=== PATIENT | female | born 1980 | race American Indian/Alaskan Native ===

== ENCOUNTER 2017-03-29 19:08 | Inpatient (IN) | payer BC ==
--- NOTE | 2017-03-29 21:30 | ED PDOC ---
HPI: Back Time Seen by Provider: 03/29/17 20:08 Chief Complaint (Nursing): Back Pain Chief Complaint (Provider): Back Pain History Per: Patient History/Exam Limitations: no limitations Onset/Duration Of Symptoms: Days (3x) Current Symptoms Are (Timing): Still Present Severity: Moderate Previous Symptoms: None Associated Symptoms: None Exacerbating Factor(s): Movement Additional Complaint(s): 36 year old female with no pertinent medical history presents to the ED with complaints of atraumatic right sided lower back pain and swelling that started 3x days ago. She reports that the pain radiates down to her legs bilaterally, and it worsens with movement, but improves with the elevation of her legs. She reports taking tylenol with no relief. She denies having a history of back problems, abdominal pain, nausea, vomiting, hematuria, incontinence, and saddle paresthesias. PMD: Leland Oswald MD Past Medical History Vital Signs: Last Vital Signs Temp 98.4 F 03/29/17 19:16 Pulse 96 H 03/29/17 19:16 Resp 16 03/29/17 19:16 BP 126/95 H 03/29/17 19:16 Pulse Ox 100 03/29/17 19:16 - Family History Family History: States: No Known Family Hx - Home Medications Home Medications: Ambulatory Orders Medication Instructions Recorded No Known Home Med 03/29/17 - Allergies Allergies/Adverse Reactions: Allergies Allergy/AdvReac Type Severity Reaction Status Date / Time apple Allergy SWELLING Verified 03/29/17 22:55 walnut Allergy SWELLING Verified 03/29/17 22:55 Review of Systems ROS Statement: Except As Marked, All Systems Reviewed And Found Negative Gastrointestinal: Negative for: Nausea, Vomiting, Abdominal Pain Genitourinary Female: Negative for: Incontinence, Hematuria Musculoskeletal: Positive for: Back Pain (right sided lower back pain, radiates down to patient's legs bilaterally). Negative for: Other (saddle paresthesias) Physical Exam - Reviewed Nursing Documentation Reviewed: Yes Vital Signs Reviewed: Yes - Physical Exam Appears: Positive for: Well, Non-toxic, In Acute Distress (mild painful distress ) Head Exam: Positive for: ATRAUMATIC, NORMOCEPHALIC Skin: Positive for: Normal Color, Warm. Negative for: Rash Eye Exam: Positive for: EOMI, Normal appearance, PERRL ENT: Positive for: Normal ENT Inspection Neck: Positive for: Normal, Painless ROM Cardiovascular/Chest: Positive for: Regular Rate, Rhythm Respiratory: Positive for: Normal Breath Sounds. Negative for: Respiratory Distress Gastrointestinal/Abdominal: Positive for: Normal Exam, Soft. Negative for: Tenderness Back: Positive for: Normal Inspection, Muscle Spasm (right sided paralumbar muscle spasm). Negative for: L CVA Tenderness, R CVA Tenderness, Vertebral Tenderness, Other (negative straight leg raise bilaterally) Extremity: Positive for: Normal ROM Neurologic/Psych: Positive for: Alert, Oriented (3x). Negative for: Aphasia, Facial Droop - Laboratory Results Result Diagrams: 03/29/17 21:48 03/29/17 21:48 Urine POC: Negative Urine dip results: Negative for: Leukocyte Esterase, Blood, Nitrate, Ketones, Glucose, Bilirubin, Protein - ECG ECG: Positive for: Interpreted By Me ECG Rhythm: Positive for: Sinus Rhythm. Negative for: ST/T Changes Rate: 74 O2 Sat by Pulse Oximetry: 100 (RA) Pulse Ox Interpretation: Normal - Radiology X-Ray: Interpreted by Me (CXR, LS spine x-ray) X-Ray Interpretation: No Acute Disease Medical Decision Making Medical Decision Makin:08 Initial impression: 36 year old female with right sided lower back pain. Initial plan: * type and screen * CMP * NPO diet * urine * udip * CBC * dextrose 5%/.45% NS 1000ml IV 80 mls/hr * flexeril 10mg PO * morphine 4mg IVP * toradol 15mg IM * zofran inj 4mg IVP * XRay LS spine AP/LAT * urinalysis called ED to request patient be admitted under his service for intractable back pain. He discussed the case with Dr. Mueller who requested the patient have an MRI of the lumbar spine tomorrow in the AM and be put on an NPO diet after midnight tonight. As per his discussion with Dr. Mueller pt. has a mass in the R lower back that is causing a mass effect. Scribe Attestation: Documented by Mila Lopez, acting as a scribe for Felix Calderón Provider Scribe Attestation: All medical record entries made by the Scribe were at my direction and personally dictated by me. I have reviewed the chart and agree that the record accurately reflects my personal performance of the history, physical exam, medical decision making, and the department course for this patient. I have also personally directed, reviewed, and agree with the discharge instructions and disposition. Disposition - Clinical Impression Clinical Impression: Intractable back pain - Patient ED Disposition Is Patient to be Admitted: No - Disposition Disposition: Routine/Home Disposition Time: 22:30 Condition: STABLE
[2017-03-29 22:20] LABS: BASO # 0.1 K/uL (0.0-0.2); BASO % 1.1 % (0.0-2.0); EOS # 0.3 K/uL (0.0-0.7); HEMOGLOBIN 13.6 g/dL (12.0-16.0); LYMPH # 3.7 K/uL (1.0-4.3); LYMPH % 40.6 % (20.0-40.0); MEAN CELL VOLUME 89.1 fl (81.0-99.0); MEAN CORPUSCULAR HEMOGLOBIN 30.3 pg (27.0-31.0); MEAN PLATELET VOLUME 11.1 fl (7.2-11.7); MONO # 0.6 K/uL (0.0-0.8); MONO % 6.9 % (0.0-10.0); NEUT # 4.4 K/uL (1.8-7.0); NEUT % 48.4 % (50.0-75.0); RBC 4.5 Mil/uL (3.80-5.20); RED CELL DISTRIBUTION WIDTH 13.2 % (11.5-14.5); WHITE BLOOD COUNT 9.2 K/uL (4.8-10.8)
[2017-03-29] MEDS: Dextrose 5%/0.45% NS 1,000 ML IV SCH (22:26)
[2017-03-29 22:35] LABS: ALB/GLOB RATIO 1.5 (1.0-2.1); ALBUMIN 4.3 g/dL (3.5-5.0); ALT/SGPT 42 U/L (9-52); AST/SGOT 83 U/L (14-36); BLOOD UREA NITROGEN 19 mg/dl (7-17); CALCIUM 10.4 mg/dL (8.4-10.2); GFR AFRICAN-AMERICAN > 60; GFR NON-AFRICAN AMERICAN > 60
[2017-03-29 23:25] LABS: SQUAMOUS EPITHIAL < 1 /hpf (0-5); URINE BILIRUBIN NEGATIVE (NEGATIVE); URINE BLOOD NEGATIVE (NEGATIVE); URINE CLARITY SLIGHTY-CLOUDY (Clear); URINE COLOR YELLOW (YELLOW); URINE GLUCOSE (UA) NEG (Normal); URINE LEUKOCYTE ESTERASE NEG Leu/uL (Negative); URINE NITRATE NEGATIVE (NEGATIVE); URINE PROTEIN NEGATIVE (NEGATIVE); URINE UROBILINOGEN 0.2-1.0 mg/dL (0.2-1.0)
[2017-03-30] MEDS ORDERED: Morphine 4 MG/ML VIAL IVP PRN (07:42)
--- NOTE | 2017-03-30 10:13 | CP.PCM.HP ---
History of Present Illness - History of Present Illness History of Present Illness: This si a 36 y/o female admitted for intractable lower back and buttock pain. She had a buttock lift in the past and for sometime she had developed multiple tender lumps on both gluteal areas. She had the procedure few years ago. She also had a hx of breast reduction. Medical hx is unremarkable. Has no allergies. Hx of C section. Takes OTC pain meds but claims that pain has gotten worst and not responding to current meds hence sought ER evaluation. Present on Admission - Present on Admission Any Indicators Present on Admission: No History of DVT/PE: No History of Uncontrolled Diabetes: No Urinary Catheter: No Decubitus Ulcer Present: No Review of Systems - Musculoskeletal Additional comments: tenderness on both gluteal areas and areas of moveable tender masses on both gluteal areas. Past Patient History - Infectious Disease Hx of Infectious Diseases: None - Past Medical History & Family History Past Medical History?: No - Past Social History Smoking Status: Never Smoked - CARDIAC Hx Cardiac Disorders: No - PULMONARY Hx Respiratory Disorders: No - NEUROLOGICAL Hx Neurological Disorder: No - HEENT Hx HEENT Problems: No - RENAL Hx Chronic Kidney Disease: No - ENDOCRINE/METABOLIC Hx Endocrine Disorders: No - HEMATOLOGICAL/ONCOLOGICAL Hx Blood Disorders: No - INTEGUMENTARY Hx Dermatological Problems: No - MUSCULOSKELETAL/RHEUMATOLOGICAL Hx Falls: No - GENITOURINARY/GYNECOLOGICAL Hx Genitourinary Disorders: No - PSYCHIATRIC Hx Psychophysiologic Disorder: No Hx Substance Use: No - SURGICAL HISTORY Hx Surgeries: Yes Hx Section: Yes (x1) Other/Comment: Bilateral buttocks injections x5 years ago - ANESTHESIA Hx Anesthesia: Yes Hx Anesthesia Reactions: No Meds Allergies/Adverse Reactions: Allergies Allergy/AdvReac Type Severity Reaction Status Date / Time apple Allergy SWELLING Verified 03/29/17 22:55 walnut Allergy SWELLING Verified 03/29/17 22:55 Physical Exam - Head Exam Head Exam: NORMAL INSPECTION - Eye Exam Eye Exam: Normal appearance - ENT Exam ENT Exam: Mucous Membranes Moist - Cardiovascular Exam Cardiovascular Exam: REGULAR RHYTHM - GI/Abdominal Exam GI & Abdominal Exam: Normal Bowel Sounds - Extremities Exam Additional comments: tender lumps multiple, on both gluteal areas. - Neurological Exam Neurological exam: CN II-XII Intact, Oriented x3 - Psychiatric Exam Psychiatric exam: Normal Affect Results - Vital Signs Recent Vital Signs: Last Vital Signs Temp 97.8 F 03/30/17 08:12 Pulse 78 03/30/17 08:12 Resp 20 03/30/17 08:12 BP 107/71 03/30/17 08:12 Pulse Ox 100 03/30/17 08:12 - Labs Result Diagrams: 03/29/17 21:48 03/29/17 21:48 Labs: Laboratory Results - last 24 hr 03/30/17 00:06 Blood Type Confirm B POSITIVE Assessment & Plan (1) Localized swelling, mass and lump, multiple sites Status: Acute (2) Intractable back pain Status: Acute - Assessment and Plan (Free Text) Plan: MRI of the pelvis and LS area Pain meds Consult with Dr Taylor, labs reviewed medically stable for surgery Plastic surgery NPO
--- NOTE | 2017-03-30 12:44 | MRI ---
PROCEDURE: MR LUMBAR SPINE WITHOUT CONTRAST HISTORY: intractable back pain COMPARISON: None available. TECHNIQUE: Multiecho multiplanar sequences were performed through the lumbar spine without the use of intravenous contrast. FINDINGS: Normal lumbar lordosis. Vertebral body heights are preserved. Marrow signal unremarkable. Conus medullaris unremarkable at the level of L1. Paraspinal soft tissues are unremarkable. T12-L1: No disc herniation, spinal canal stenosis or neural foraminal narrowing. L1-2: No disc herniation, spinal canal stenosis or neural foraminal narrowing. L2-3: No disc herniation, spinal canal stenosis or neural foraminal narrowing. L3-4: No disc herniation, spinal canal stenosis or neural foraminal narrowing. L4-5: No disc herniation, spinal canal stenosis or neural foraminal narrowing. L5-S1: No disc herniation, spinal canal stenosis or neural foraminal narrowing. OTHER FINDINGS: Heterogeneous signal change identified within the visualized upper buttocks regions bilaterally potentially from recent or past cosmetic injections. Clinically correlate. If these soft tissues need to be specifically better evaluated, follow-up MRI or CT with and without contrast can be utilized for greater characterization. IMPRESSION: No disc herniation, central canal or neural foraminal stenosis appreciated. No suspicious epidural findings are seen throughout the exam and the thecal contents unremarkable throughout the lumbar spine as well. Note is made of heterogeneous signal changes in the superficial and deep subcutaneous fat of the upper visualized bilateral buttocks suggesting potential prior cosmetic procedure/injections. Clinically correlate further. Abscess related to these passes or car procedure is in question of follow-up CT through the pelvis is advised without contrast or possibly MRI. Yes
--- NOTE | 2017-03-30 13:50 | CP.PCM.CON ---
History of Present Illness - History of Present Illness History of Present Illness: Plastic Surgery Consult note. Dr. Taylor. CC: Buttock pain. 36yo F with no significant PMHx here for low back pain. Pain started 1 week ago and has been getting worse. She states that she has had silicone injections to bilateral buttocks done about 7 years ago. This was not done by a professional surgeon. Two years ago, she had some of these removed. She has had multiple lumps with some pain off and on since then. Her low back pain started 1 week ago , radiates down both legs. Pain is described as sharp. She states that the pain is slowly getting worse and she also has some bilateral lower extremity weakness and she attributes this to her buttock pain. Denies N/V/D. No fevers or chills at home. No Chest pain, shortness of breath. PMHx: None PSHx: x1, Breast reduction, Bilateral silicone injections to buttocks. Family Hx: Mother - HTN, DM Social Hx: Denies tobacco, Occasional Wine use, Denies illicit drug use. Allergy: Apple, Moffit Review of Systems - Review of Systems All systems: reviewed and no additional remarkable complaints except - Constitutional Constitutional: absent: Chills, Fever - EENT Eyes: absent: Change in Vision - Cardiovascular Cardiovascular: absent: Chest Pain, Dyspnea - Respiratory Respiratory: absent: Dyspnea - Gastrointestinal Gastrointestinal: absent: Abdominal Pain, Diarrhea, Nausea, Vomiting - Genitourinary Genitourinary: absent: Dysuria, Flank Pain - Musculoskeletal Musculoskeletal: Back Pain Past Patient History - Infectious Disease Hx of Infectious Diseases: None - Past Medical History & Family History Past Medical History?: No - Past Social History Smoking Status: Never Smoked - CARDIAC Hx Cardiac Disorders: No - PULMONARY Hx Respiratory Disorders: No - NEUROLOGICAL Hx Neurological Disorder: No - HEENT Hx HEENT Problems: No - RENAL Hx Chronic Kidney Disease: No - ENDOCRINE/METABOLIC Hx Endocrine Disorders: No - HEMATOLOGICAL/ONCOLOGICAL Hx Blood Disorders: No - INTEGUMENTARY Hx Dermatological Problems: No - MUSCULOSKELETAL/RHEUMATOLOGICAL Hx Falls: No - GENITOURINARY/GYNECOLOGICAL Hx Genitourinary Disorders: No - PSYCHIATRIC Hx Psychophysiologic Disorder: No Hx Substance Use: No - SURGICAL HISTORY Hx Surgeries: Yes Hx Section: Yes (x1) Other/Comment: Bilateral buttocks injections x5 years ago - ANESTHESIA Hx Anesthesia: Yes Hx Anesthesia Reactions: No Meds Allergies/Adverse Reactions: Allergies Allergy/AdvReac Type Severity Reaction Status Date / Time apple Allergy SWELLING Verified 03/29/17 22:55 walnut Allergy SWELLING Verified 03/29/17 22:55 - Medications Medications: Current Medications Dextrose/Sodium Chloride (Dextrose 5%/0.45% Ns 1000 Ml) 1,000 mls @ 80 mls/hr IV .[id number] [facility] Stop: 03/30/17 21:04 Last Admin: 03/29/17 22:26 Dose: 80 mls/hr Morphine Sulfate (Morphine) 4 mg IVP Q6 PRN PRN Reason: Pain, severe (8-10) Ondansetron HCl (Zofran Inj) 4 mg IVP Q6 PRN PRN Reason: Nausea/Vomiting Pantoprazole Sodium (Protonix Inj) 40 mg IVP DAILY [facility] Last Admin: 03/30/17 09:25 Dose: 40 mg Physical Exam - Constitutional Appears: Well, No Acute Distress - Head Exam Head Exam: ATRAUMATIC, NORMAL INSPECTION, NORMOCEPHALIC - Eye Exam Eye Exam: EOMI, Normal appearance - ENT Exam ENT Exam: Mucous Membranes Moist - Neck Exam Neck exam: Positive for: Normal Inspection - Respiratory Exam Respiratory Exam: NORMAL BREATHING PATTERN - GI/Abdominal Exam GI & Abdominal Exam: Soft. absent: Firm, Guarding, Rebound, Tenderness - Extremities Exam Extremities exam: Negative for: calf tenderness Additional comments: Superior R buttock ~4cm area of induration, no erythema, no active drainage. Multiple areas of induration over bilateral lower back and buttocks. No active drainage. Lower butt creases with large skin scars, healed. - Neurological Exam Neurological exam: Alert, Oriented x3 - Psychiatric Exam Psychiatric exam: Normal Affect, Normal Mood - Skin Skin Exam: Dry, Intact, Normal Color, Warm Results - Vital Signs Recent Vital Signs: Last Vital Signs Temp 97.8 F 03/30/17 08:12 Pulse 78 03/30/17 08:12 Resp 20 03/30/17 08:12 BP 107/71 03/30/17 08:12 Pulse Ox 100 03/30/17 08:12 - Labs Result Diagrams: 03/29/17 21:48 03/29/17 21:48 Labs: Laboratory Results - last 24 hr 03/30/17 00:06 Blood Type Confirm B POSITIVE Assessment & Plan - Assessment and Plan (Free Text) Assessment: 36yo F w low back pain - Hx of bilateral buttock lifts few years ago - No leukocytosis, afebrile - Lumbar MRI - no apparent mass effect or stenosis over spinal foramen. - NPO - IVF - Pain Control - f/u Pelvis MRI - To OR today Further recs as per Dr. Brandon Summers PGY1
--- NOTE | 2017-03-30 14:24 | RAD ---
PROCEDURE: CHEST RADIOGRAPH, 1 VIEW HISTORY: clearance COMPARISON: None available. FINDINGS: LUNGS: Clear. PLEURA: No pneumothorax or pleural fluid seen. CARDIOVASCULAR: Normal. OSSEOUS STRUCTURES: No significant abnormalities. VISUALIZED UPPER ABDOMEN: Normal. OTHER FINDINGS: None. IMPRESSION: No active disease.
--- NOTE | 2017-03-30 14:43 | RAD ---
PROCEDURE: Radiographs of the Lumbar Spine sign HISTORY: pain COMPARISON: No prior. FINDINGS: BONES: Normal alignment. No listhesis. No fracture. DISC SPACES: Unremarkable. OTHER FINDINGS: None. IMPRESSION: Unremarkable radiographs of the lumbar spine. No preliminary report provided by emergency department personnel.
[2017-03-30] MEDS ORDERED: Midazolam 2 MG/2 ML VIAL ONE (17:31)
[2017-03-30] MEDS ORDERED: Propofol 10 mg/ml Inj (20 ML) ONE (17:31)
[2017-03-30] MEDS ORDERED: Bupivacaine 0.5% Inj(30mL) ONE (17:31)
[2017-03-30] MEDS ORDERED: Lidocaine 4% (Laryng-O-Jet) Kit MM ONE (17:31)
[2017-03-30] MEDS ORDERED: Lidocaine 1% Inj (20ml) ONE (17:31)
[2017-03-30] MEDS ORDERED: Rocuronium 10 mg/ml (5 ml) ONE (17:34)
[2017-03-30] MEDS ORDERED: Lactated Ringer's 1,000 ML IV ONE (17:57)
[2017-03-30] MEDS: Dextrose 5%/0.45% NS 1,000 ML IV SCH (18:04)
[2017-03-30] MEDS ORDERED: Esmolol 100 mg/10ml Inj IV ONE (18:19)
[2017-03-30] MEDS ORDERED: Dexamethasone 4 mg/1 ml ONE (18:20)
[2017-03-30] MEDS ORDERED: Sodium Chloride 0.9% 1,000 ML IV ONE (19:30)
[2017-03-30] MEDS: Ampicillin/Sulbactam 3 GM in Sodium Chloride 0.9% 100 ML IVPB SCH (20:00)
--- NOTE | 2017-03-30 20:09 | PCM.SURG1 ---
Surgeon's Initial Post Op Note - Surgeon's Notes Surgeon: Dr. Talyor Fuel Cell Assembler: Fabi Higgins PGY3, Ward PGY2, Melina PGY1 Type of Anesthesia: General Endo Anesthesia Administered By: Dr. Bañuelos Pre-Operative Diagnosis: Foreign body of low back and buttocks Operative Findings: same Post-Operative Diagnosis: same Operation Performed: Stage Debridement bilateral buttocks and back of necrotic tissue. Wound vac placement Specimen/Specimens Removed: Right Buttock, Left Buttock, Right Back, Left Back Estimated Blood Loss: EBL {In ML}: 500 Blood Products Given: N/A Drains Used: Wound Vac (Wound vac x2 placed) Post-Op Condition: Good Date of Surgery/Procedure: 03/30/17 Time of Surgery/Procedure: 20:09
[2017-03-30] MEDS: Lactated Ringer's 1,000 ML IV SCH (20:15)
[2017-03-30] MEDS ORDERED: HYDROmorphone 0.5 mg/0.5 ml ISec ONE ×2 (20:38→21:57)
[2017-03-30] MEDS: HYDROmorphone 0.5 mg/0.5 ml ISec IVP PRN ×2 (21:20→21:58)
[2017-03-30 21:41] LABS: HEMOGLOBIN 13.7 g/dL (12.0-16.0); MEAN CELL VOLUME 88.6 fl (81.0-99.0); MEAN CORPUSCULAR HGB CONC 32.7 g/dL (33.0-37.0); RBC 4.71 Mil/uL (3.80-5.20); RED CELL DISTRIBUTION WIDTH 14.1 % (11.5-14.5); WHITE BLOOD COUNT 18.1 K/uL (4.8-10.8)
[2017-03-31] MEDS: Lactated Ringer's 1,000 ML IV SCH ×3 (04:42→20:16)
[2017-03-31] MEDS: Ampicillin/Sulbactam 3 GM in Sodium Chloride 0.9% 100 ML IVPB SCH ×3 (04:44→20:17)
[2017-03-31 07:10] LABS: HEMOGLOBIN 12.1 g/dL (12.0-16.0); MEAN CELL VOLUME 88.1 fl (81.0-99.0); MEAN CORPUSCULAR HEMOGLOBIN 29.6 pg (27.0-31.0); MEAN CORPUSCULAR HGB CONC 33.6 g/dL (33.0-37.0); RBC 4.08 Mil/uL (3.80-5.20); WHITE BLOOD COUNT 10.7 K/uL (4.8-10.8)
--- NOTE | 2017-03-31 07:21 | CP.PCM.PN ---
Subjective - Date & Time of Evaluation Date of Evaluation: 03/31/17 Time of Evaluation: 07:19 - Subjective Subjective: surgery for Dr. Taylor Pt s&e. Pt underwent debridment and delayed flap yesterday and tolerated it well. Denies F/C/N/V/D/Cp/SOB. Pain controlled. + amb. + void Objective - Vital Signs/Intake and Output Vital Signs (last 24 hours): Temp Pulse Resp BP Pulse Ox 98.6 F 87 16 100/66 99 03/31/17 02:25 03/31/17 02:25 03/31/17 02:25 03/31/17 02:25 03/31/17 02:25 Intake and Output: 03/31/17 03/31/17 06:59 18:59 Intake Total 600 Output Total 200 Balance 400 - Medications Medications: Current Medications Heparin Sodium (Porcine) (Heparin) 5,000 units SC Q8 VIKRAM PRN Reason: Protocol Last Admin: 03/31/17 00:16 Dose: 5,000 units Hydromorphone HCl (Dilaudid 0.2 Mg/Ml Radio Mechanic Helper) 0 mg IV PRN PRN; Protocol PRN Reason: Pain, severe (8-10) Last Admin: 03/30/17 22:28 Dose: 6 mg Ampicillin Sodium/Sulbactam (Sodium 3 gm/ Sodium Chloride) 100 mls @ 100 mls/ hr IVPB Q8H [facility] Last Admin: 03/31/17 04:44 Dose: 100 mls/hr Lactated Ringer's (Lactated Ringer's) 1,000 mls @ 125 mls/hr IV .Q8H [facility] Last Admin: 03/31/17 04:42 Dose: Not Given Morphine Sulfate (Morphine) 4 mg IVP Q6 PRN PRN Reason: Pain, severe (8-10) Ondansetron HCl (Zofran Inj) 4 mg IVP Q6 PRN PRN Reason: Nausea/Vomiting Oxycodone/Acetaminophen (Percocet 5/325 Mg Tab) 2 tab PO Q4 PRN PRN Reason: pain Stop: 04/03/17 07:17 Pantoprazole Sodium (Protonix Inj) 40 mg IVP DAILY [facility] Last Admin: 03/30/17 09:25 Dose: 40 mg - Labs Labs: 03/30/17 21:38 - Constitutional Appears: Non-toxic, No Acute Distress - Head Exam Head Exam: ATRAUMATIC, NORMAL INSPECTION, NORMOCEPHALIC - Eye Exam Eye Exam: EOMI, Normal appearance, PERRL Pupil Exam: NORMAL ACCOMODATION, PERRL - ENT Exam ENT Exam: Mucous Membranes Moist, Normal Exam - Neck Exam Neck Exam: Full ROM, Normal Inspection. absent: Lymphadenopathy - Respiratory Exam Respiratory Exam: Clear to Ausculation Bilateral, NORMAL BREATHING PATTERN - Cardiovascular Exam Cardiovascular Exam: REGULAR RHYTHM, +S1, +S2. absent: Murmur - GI/Abdominal Exam GI & Abdominal Exam: Soft, Normal Bowel Sounds. absent: Distended, Tenderness - Extremities Exam Extremities Exam: Full ROM, Normal Capillary Refill, Tenderness Additional comments: b/l buttocks has wound vac. No leak. TTP. - Back Exam Back Exam: tenderness - Neurological Exam Neurological Exam: Alert, Awake, CN II-XII Intact, Normal Gait, Oriented x3 - Psychiatric Exam Psychiatric exam: Normal Affect, Normal Mood - Skin Skin Exam: Dry, Warm Assessment and Plan - Assessment and Plan (Free Text) Assessment: POD 1 s/p foreign body removal and necrotic tissue debridement and wound vac placement -Pain control -encourage ambulation -IS -Reg diet -Plan for delayed closure on Thurs -DVT/GI ppx Will DW Dr. Taylor
[2017-03-31 10:05] LABS: ALB/GLOB RATIO 1.4 (1.0-2.1); ALBUMIN 3.4 g/dL (3.5-5.0); ALT/SGPT 39 U/L (9-52); AST/SGOT 49 U/L (14-36); BLOOD UREA NITROGEN 12 mg/dl (7-17); CALCIUM 8.3 mg/dL (8.4-10.2); GFR AFRICAN-AMERICAN > 60; GFR NON-AFRICAN AMERICAN > 60
--- NOTE | 2017-03-31 13:09 | MRI ---
PROCEDURE: MRI pelvis HISTORY: intractable back pain COMPARISON: Not available TECHNIQUE: Multiplanar, multi sequence imaging of the pelvis was performed without intravenous gadolinium administration. FINDINGS: The uterus is unremarkable in appearance. There are several cervical nabothian cysts identified. There is no fluid seen within the uterus. The endometrium is unremarkable. The junctional zone is grossly normal in width. Please note that the axial STIR sequence and the sagittal proton density fat sat sequence included in this examination is grossly limited due to patient motion artifact. The ovaries are not specifically identified in this examination. The examination was performed as a musculoskeletal examination rather than a soft tissue pelvis examination. Nevertheless, in the posterior right adnexal region, there is an irregularly-shaped rounded collection with fluid signal measuring approximately 2.6 x 2.2 cm. This most likely represents a ruptured or involuting cyst. The left ovary is not visualized. There is a small amount of free fluid in the cul-de-sac and right adnexal region. The urinary bladder is unremarkable. There is no pelvic lymphadenopathy. The marrow signal of the visualized osseous structures is within normal limits. There is heterogeneous signal seen within the subcutaneous soft tissues of the buttocks consistent with known cosmetic injection. Mild increased signal is seen within the gluteus musculature on T2 and proton density fat sat images consistent with a nonspecific myositis. IMPRESSION: Probable ruptured/ involuting right ovarian cyst, 2.6 cm. Heterogeneous signal within the subcutaneous fat of the buttocks region consistent with cosmetic injection. Mild increased signal within the gluteus musculature indicating possible nonspecific myositis. Preliminary interpretation of this examination was reported by [employer] at 7:34 p.m. on 03/30/2017. There is general concurrence of this report with the preliminary interpretation. Please note that the suspected ruptured/involuting right ovarian cyst was not described in the preliminary report of this examination.
--- NOTE | 2017-03-31 14:53 | CP.PCM.PN ---
Subjective - Date & Time of Evaluation Date of Evaluation: 03/31/17 Time of Evaluation: 09:00 - Subjective Subjective: Afebrile Denies pain at this evaluation Denies chest pain, SOB, nausea, vomiting or other complains Objective - Vital Signs/Intake and Output Vital Signs (last 24 hours): Temp Pulse Resp BP Pulse Ox 97.7 F 89 18 108/77 100 03/31/17 11:49 03/31/17 11:49 03/31/17 11:49 03/31/17 11:49 03/31/17 11:49 Intake and Output: 03/31/17 03/31/17 06:59 18:59 Intake Total 600 Output Total 600 Balance 0 - Medications Medications: Current Medications Heparin Sodium (Porcine) (Heparin) 5,000 units SC Q8 VIKRAM PRN Reason: Protocol Last Admin: 03/31/17 09:15 Dose: 5,000 units Hydromorphone HCl (Dilaudid 0.2 Mg/Ml Heading Repairer) 0 mg IV PRN PRN; Protocol PRN Reason: Pain, severe (8-10) Last Admin: 03/30/17 22:28 Dose: 6 mg Ampicillin Sodium/Sulbactam (Sodium 3 gm/ Sodium Chloride) 100 mls @ 100 mls/ hr IVPB Q8H [facility] Last Admin: 03/31/17 12:24 Dose: 100 mls/hr Lactated Ringer's (Lactated Ringer's) 1,000 mls @ 125 mls/hr IV .Q8H [facility] Last Admin: 03/31/17 04:42 Dose: Not Given Morphine Sulfate (Morphine) 4 mg IVP Q6 PRN PRN Reason: Pain, severe (8-10) Ondansetron HCl (Zofran Inj) 4 mg IVP Q6 PRN PRN Reason: Nausea/Vomiting Last Admin: 03/31/17 09:16 Dose: 4 mg Oxycodone/Acetaminophen (Percocet 5/325 Mg Tab) 2 tab PO Q4 PRN PRN Reason: pain Stop: 04/03/17 07:17 Pantoprazole Sodium (Protonix Inj) 40 mg IVP DAILY [facility] Last Admin: 03/31/17 09:23 Dose: 40 mg - Labs Labs: 03/31/17 06:00 03/31/17 09:10 - Constitutional Appears: No Acute Distress - Head Exam Head Exam: NORMAL INSPECTION - Eye Exam Eye Exam: Normal appearance - ENT Exam ENT Exam: Mucous Membranes Moist - Respiratory Exam Respiratory Exam: Clear to Ausculation Bilateral - Cardiovascular Exam Cardiovascular Exam: REGULAR RHYTHM, +S1, +S2 - GI/Abdominal Exam GI & Abdominal Exam: Soft, Normal Bowel Sounds. absent: Distended, Tenderness - Extremities Exam Extremities Exam: Pedal Edema. absent: Calf Tenderness Additional comments: bilateral edema in lower extremities pitting 1 + - Neurological Exam Neurological Exam: Alert, Awake Assessment and Plan - Assessment and Plan (Free Text) Assessment: 36 y/o F with no significant PMHx s/p foreign body removal and necrotic tissue debridement and wound vac placement on POD 1 Plan: POD 1 s/p foreign body removal and necrotic tissue debridement and wound vac placement c/w with current management f/u CBC, CMP tomorrow am c/w VS monitoring pain control Abx treatment f/u surgery recommendations Prophylaxis c/w Heparin SC Q8 for DVT prophylaxis c/w Protonix for GI prophylaxis
--- NOTE | 2017-04-01 02:31 | CP.PCM.PCO ---
Assessment/Plan Progress Note - Assessment/Plan Assessment (Free Text): Asked to evaluate 36 y/o F with previously unremarkable PMH who is s/p b/l buttocks debridement, POD #1. Patient reports sternal chest pain which has been present for several hours. Pain is aggravated by movement and is reproducible by palpation of sternum. She denies fevers, chills, diaphoresis, SOB, cough, abdominal pain, nausea or vomiting. Patient has been using her incentive spirometry as directed. 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 PE: GEN: Appears comfortable, in no acute distress CV: S1/S2 present, tachycardia, regular rhythm PULM: Good b/l air entry present. No wheezes, rales or rhonchii audible. No signs of respiratory distress. ABD: Soft, NT, ND, BS+ EXT: Peripheral pulses palpable, No edema MSK: Sternal tenderness to palpation Plan: -STAT ekg performed reveals no ischemic changes -Continue incentive spirometry -Motrin 600mg PO ordered for possible costochondritis - Problems Patient Problems: Problem List (Active/Current) Problem Status Onset Code Intractable back pain Acute M54.9 Localized swelling, mass and lump, multiple sites Acute R22.9
[2017-04-01] MEDS: Ampicillin/Sulbactam 3 GM in Sodium Chloride 0.9% 100 ML IVPB SCH ×3 (03:21→20:57)
[2017-04-01 07:26] LABS: HEMOGLOBIN 9.9 g/dL (12.0-16.0); MEAN CELL VOLUME 88.3 fl (81.0-99.0); MEAN CORPUSCULAR HEMOGLOBIN 29.7 pg (27.0-31.0); MEAN CORPUSCULAR HGB CONC 33.7 g/dL (33.0-37.0); RBC 3.33 Mil/uL (3.80-5.20); RED CELL DISTRIBUTION WIDTH 13.6 % (11.5-14.5); WHITE BLOOD COUNT 9.9 K/uL (4.8-10.8)
[2017-04-01 07:43] LABS: ALB/GLOB RATIO 1.3 (1.0-2.1); ALT/SGPT 35 U/L (9-52); AST/SGOT 41 U/L (14-36); BLOOD UREA NITROGEN 5 mg/dl (7-17); CALCIUM 8.2 mg/dL (8.4-10.2); GFR AFRICAN-AMERICAN > 60; GFR NON-AFRICAN AMERICAN > 60
--- NOTE | 2017-04-01 07:48 | CP.PCM.PN ---
Subjective - Date & Time of Evaluation Date of Evaluation: 04/01/17 Time of Evaluation: 07:46 - Subjective Subjective: Surgery: Dr. Taylor Pt seen and examined. Pt had sternal CP overnight, pleuritic in nature. Persists this morning. Medicine workup negative for cardiac event. Pt otherwise doing well. She is ambulating, getting out of bed, and pain is controlled. Objective - Vital Signs/Intake and Output Vital Signs (last 24 hours): Temp Pulse Resp BP Pulse Ox 98.3 F 99 H 18 100/71 99 04/01/17 07:44 04/01/17 07:44 04/01/17 07:44 04/01/17 07:44 04/01/17 07:44 - Medications Medications: Current Medications Heparin Sodium (Porcine) (Heparin) 5,000 units SC Q8 [facility] PRN Reason: Protocol Last Admin: 04/01/17 00:18 Dose: 5,000 units Ampicillin Sodium/Sulbactam (Sodium 3 gm/ Sodium Chloride) 100 mls @ 100 mls/ hr IVPB Q8H [facility] Last Admin: 04/01/17 03:21 Dose: 100 mls/hr Lactated Ringer's (Lactated Ringer's) 1,000 mls @ 125 mls/hr IV .Q8H [facility] Last Admin: 03/31/17 20:16 Dose: 125 mls/hr Morphine Sulfate (Morphine) 4 mg IVP Q6 PRN PRN Reason: Pain, severe (8-10) Ondansetron HCl (Zofran Inj) 4 mg IVP Q6 PRN PRN Reason: Nausea/Vomiting Last Admin: 03/31/17 19:42 Dose: 4 mg Oxycodone/Acetaminophen (Percocet 5/325 Mg Tab) 2 tab PO Q4 PRN PRN Reason: pain Stop: 04/03/17 07:17 Pantoprazole Sodium (Protonix Inj) 40 mg IVP DAILY [facility] Last Admin: 03/31/17 09:23 Dose: 40 mg - Labs Labs: 04/01/17 06:00 03/31/17 09:10 - Constitutional Appears: Non-toxic, No Acute Distress - Head Exam Head Exam: ATRAUMATIC, NORMOCEPHALIC - Eye Exam Eye Exam: EOMI. absent: Scleral icterus - ENT Exam ENT Exam: Mucous Membranes Moist, Normal External Ear Exam - Neck Exam Neck Exam: Full ROM - Respiratory Exam Respiratory Exam: NORMAL BREATHING PATTERN. absent: Accessory Muscle Use, Respiratory Distress - GI/Abdominal Exam GI & Abdominal Exam: Soft. absent: Tenderness - Extremities Exam Extremities Exam: absent: Calf Tenderness, Pedal Edema - Back Exam Additional comments: wound vacs in place, no leak - Neurological Exam Neurological Exam: Alert, Awake, Oriented x3 Assessment and Plan - Assessment and Plan (Free Text) Assessment: 36F w. back pain 2/2 silicone buttock injections, s/p Debridement bilateral buttocks and back of necrotic tissue w. wound VAC placement, POD#2 -AM labs pending -continue w. pain meds -encourage OOB to chair TID -Do not sit directly on affected area for more than 4 hours -encourage IS use -OR tomorrow for flap closure -NPO at midnight -Hold heparin -will d/w attending Zemaitis PGY3
[2017-04-01] MEDS: Oxycodone/Acetaminophen 5/325 mg Tab PO PRN ×2 (10:56→18:02)
--- NOTE | 2017-04-01 17:33 | CP.PCM.PN ---
Subjective - Date & Time of Evaluation Date of Evaluation: 04/01/17 Time of Evaluation: 08:05 - Subjective Subjective: Patient alert and wake, feeling better this morning Pain well controlled with pain medication Afebrile Event over night :sternal chest pain aggravated by movement and is reproducible by palpation of sternum. EKG: no acute changes, pain improved with motrin Objective - Vital Signs/Intake and Output Vital Signs (last 24 hours): Temp Pulse Resp BP Pulse Ox 98.7 F 107 H 18 96/65 L 100 04/01/17 16:36 04/01/17 16:36 04/01/17 16:36 04/01/17 16:36 04/01/17 16:36 - Medications Medications: Current Medications Docusate Sodium (Colace) 200 mg PO DAILY [facility] Last Admin: 04/01/17 09:08 Dose: 200 mg Ferrous Sulfate (Feosol) 325 mg PO DAILY [facility] Last Admin: 04/01/17 09:08 Dose: 325 mg Heparin Sodium (Porcine) (Heparin) 5,000 units SC Q8 [facility] PRN Reason: Protocol Last Admin: 04/01/17 09:12 Dose: Not Given Ampicillin Sodium/Sulbactam (Sodium 3 gm/ Sodium Chloride) 100 mls @ 100 mls/ hr IVPB Q8H [facility] Last Admin: 04/01/17 12:51 Dose: 100 mls/hr Lactated Ringer's (Lactated Ringer's) 1,000 mls @ 125 mls/hr IV .Q8H [facility] Last Admin: 03/31/17 20:16 Dose: 125 mls/hr Morphine Sulfate (Morphine) 4 mg IVP Q6 PRN PRN Reason: Pain, severe (8-10) Ondansetron HCl (Zofran Inj) 4 mg IVP Q6 PRN PRN Reason: Nausea/Vomiting Last Admin: 03/31/17 19:42 Dose: 4 mg Oxycodone/Acetaminophen (Percocet 5/325 Mg Tab) 2 tab PO Q4 PRN PRN Reason: pain Stop: 04/03/17 07:17 Last Admin: 04/01/17 10:56 Dose: 2 tab Pantoprazole Sodium (Protonix Inj) 40 mg IVP DAILY [facility] Last Admin: 04/01/17 08:58 Dose: 40 mg - Labs Labs: 04/01/17 06:00 04/01/17 06:00 - Constitutional Appears: No Acute Distress - ENT Exam ENT Exam: Mucous Membranes Moist - Respiratory Exam Respiratory Exam: Clear to Ausculation Bilateral, NORMAL BREATHING PATTERN - Cardiovascular Exam Cardiovascular Exam: Tachycardia, REGULAR RHYTHM, +S1, +S2 - GI/Abdominal Exam GI & Abdominal Exam: Soft, Normal Bowel Sounds. absent: Guarding, Rigid, Tenderness - Neurological Exam Neurological Exam: Alert, Awake, Oriented x3 - Psychiatric Exam Psychiatric exam: Normal Affect - Skin Skin Exam: Dry, Intact, Pallor Assessment and Plan - Assessment and Plan (Free Text) Assessment: 36 y/o F with no significant PMHx s/p foreign body removal and necrotic tissue debridement and wound vac placement on POD 2 Plan: POD 2 s/p foreign body removal and necrotic tissue debridement and wound vac placement c/w with current management CBC showed no leukocytosis c/w pain control c/w Abx treatment f/u surgery recommendations Anemia most likely secondary to blood loss from potsurgical drainage H/H today 9.9/29.4, previously WNL start Iron supplementation daily start colace 200 mg daily f/u CBC Prophylaxis Held for now Heparin SC c/w Protonix for GI prophylaxis
--- NOTE | 2017-04-01 17:42 | CARD ---
APPROVED REPORT EKG Measurement Heart [id number] [place] [id number] <Conclusion> Normal sinus rhythm with sinus arrhythmia Normal ECG
--- NOTE | 2017-04-01 18:34 | CARD ---
APPROVED REPORT EKG Measurement Heart [id number] [place] [id number] <Conclusion> Normal sinus rhythm Possible Left atrial enlargement Borderline ECG
[2017-04-01] MEDS ORDERED: Oxycodone/Acetaminophen 5/325 mg Tab PO PRN (18:35)
[2017-04-02] MEDS: Ampicillin/Sulbactam 3 GM in Sodium Chloride 0.9% 100 ML IVPB SCH ×3 (04:35→20:45)
[2017-04-02] MEDS: Lactated Ringer's 1,000 ML IV SCH ×2 (04:43→09:52)
[2017-04-02 06:05] LABS: HEMOGLOBIN 8.3 g/dL (12.0-16.0); MEAN CELL VOLUME 88.2 fl (81.0-99.0); MEAN CORPUSCULAR HEMOGLOBIN 30.2 pg (27.0-31.0); MEAN CORPUSCULAR HGB CONC 34.2 g/dL (33.0-37.0); RBC 2.74 Mil/uL (3.80-5.20); RED CELL DISTRIBUTION WIDTH 13.5 % (11.5-14.5); WHITE BLOOD COUNT 7.5 K/uL (4.8-10.8)
--- NOTE | 2017-04-02 06:17 | CON ---
DATE: 03/30/2017 EMERGENCY CONSULTATION SURGEON: Alfonzo Taylor MD HISTORY OF PRESENT ILLNESS: This is a 36-year-old female who presented in the Emergency Room at [facility] late last night complaining of irretractable and exquisite back pain, buttock pain, as well as numbness of bilateral lower extremities and subjective fevers and chills in the last couple of days. The patient has a history of buttock injections of some foreign material, likely many years ago. The patient has had surgery approximately two years ago to remove some of the foreign material from her inferior buttocks and her thighs. The patient states that her back pain has been increasing over the past many months and it became intolerable to the point where she could not take it and her legs were falling asleep, thus she presented to the emergency room. She was admitted to the medical service. The medical team started the patient on antibiotics because there was redness and warmth of the buttock consistent with an early cellulitis as well as ordered MRIs of the lumbar spine and pelvis. I reviewed the MRIs, and after the report of the MRIs of the lumbar spine and the pelvis showed significant infiltration and soft tissue necrosis of the lumbar spine up to the T12, thoracic 12 as well as significant soft tissue necrosis of the bilateral gluteus jose manuel soft tissue and the muscles, thus I was consulted emergently by the hospital staff. When I examined the patient on physical exam, there was fluctuant tender mass on her lumbar spine going up to T12. There were also multiple nodules in bilateral buttocks, upper quadrants, as well as lower quadrants and that was significantly tender. The buttocks are red and warm consistent with cellulitis. I explained to the patient after reviewing the MRI, the reason she is having acute paresthesias and numbness of her legs and exquisite back pain is from mass effect, a tumor-like mass on her spinal cord, paraspinal muscles, as well as lymphatic nerves. I have recommended emergent operation to which the patient agreed. Risks and benefits of the operation included, but not limited to bleeding, infection and nerve damage, hematoma and ceroma, persistence of pain, chronic pain, embolization of the material at other parts of the body, post scaring, keloid scaring and need for multiple operations were discussed and all questions were answered. Alfonzo Taylor MD [facility] # [id number]
--- NOTE | 2017-04-02 07:07 | OP ---
PROCEDURE DATE: 03/30/2017 PREOPERATIVE DIAGNOSES: 1. Retractable back pain secondary to mass effect. 2. Bilateral buttock and back soft tissue necrosis secondary to foreign body. 3. Cellulitis of back and buttocks. POSTOPERATIVE DIAGNOSES: 1. Retractable back pain secondary to mass effect. 2. Bilateral buttock and back soft tissue necrosis secondary to foreign body. 3. Cellulitis of back and buttocks. PROCEDURES PERFORMED: 1. Partial removal of foreign material from back and bilateral buttocks. 2. Elevation and delay of right inferiorly based gluteal fasciocutaneous flap. 3. Elevation and delay of left inferiorly based gluteal fasciocutaneous flap. 4. Elevation and delay of lumbar spine fasciocutaneous flap. 5. Radical resection of 120 cm2 of left back necrotic soft tissue mass. 6. Radical resection of 180 cm2 of left buttock necrotic soft tissue mass. 7. Radical resection of 108 cm2 of right back necrotic soft tissue mass. 8. Radical resection of 195 cm2 of right buttock necrotic soft tissue mass. 9. Debridement bilateral gluteus jose manuel necrotic muscles. 10. Pulsatile lavage irrigation open wounds over the back. 11. Wound VAC placement in bilateral buttocks. SURGEON: Alfonzo Taylor MD SPORTS EQUIPMENT RACKER: Checo Caro MD TYPE OF ANESTHESIA: General endotracheal tube anesthesia. ANESTHESIA ADMINISTERED BY: Angel Bañuelos MD ESTIMATED BLOOD LOSS: 300 mL. BLOOD PRODUCTS: The patient had 2 units of packed red blood cells. DRAINS: Wound VACs, bilateral buttocks. COMPLICATIONS: None. CONDITION: Stable. SPECIMENS: 1. Left back necrotic soft tissue. 2. Left buttock necrotic soft tissue. 3. Right buttock necrotic soft tissue. 4. Right back necrotic soft tissue. INDICATIONS FOR PROCEDURE: As follows: Please refer to my separately dictated emergency consultation for history and physical. In the preoperative holding area, the patient's mass in her back and her buttocks were marked out and appropriate markings were made correlating to the MRI. Again risks and benefits were fully discussed with the patient including were not limited to bleeding, infection, hematoma, seroma, nerve damage, chronic pain, embolization of the foreign material to other parts of the body, the inability to remove all the foreign materials with the possibility if not improving after this operation, the possibility of coming out cosmetically deformed, the possibility of needing multiple reconstructive surgeries over many years, DVT, PE, [place], and ; this was all discussed with the patient and all questions were answered. DESCRIPTION OF PROCEDURE: As follows: The patient is taken to the operating room and placed under general endotracheal tube anesthesia. After perioperative antibiotics were given, SCDs were placed on bilateral lower extremities. She was then flipped over in the prone position after appropriate positioning and padding of her arms. The area was prepped and draped in the usual clean and sterile manner. Ioban was used and a blue towel to block off the anus. The markings were reinforced with the #10 scalpel. We stepped down to the skin and with electrocautery, we dissected all the way down to the weak muscle fascia of the paraspinal muscles and the gluteus jose manuel deep muscle fascia. There was significant mass effect and the mass and necrotic soft tissue of lumbar spine going up to thoracic 12 as well as bilateral gluteus maximum muscles that we encountered after going down. We elevated 3 flaps and delayed. We elevated and delayed a superiorly based lumbar facia cutaneous flap staying just below Marshall fascia elevating the flap all the way up to the thoracic-12 spine. We then elevated and delayed 2 inferiorly based left and right gluteal fasciocutaneous flaps just deep to Marshall's fascia in the same manner going down approximately 12 cm. After doing this and delaying the flaps, we then performed radical excision of soft tissue tumor like mass material from bilateral buttocks and the back by dissecting with electrocautery over the deep muscle fascia of the paraspinal muscles and gluteus jose manuel muscles in addition to sharp dissection with scissor and scalpel. We excised 120 cm2 of left back necrotic soft tissue mass, 180 cm2 of left buttock necrotic tissue mass, 108 cm2 of right back necrotic soft tissue, and 195 cm2 right buttock necrotic soft tissue mass. With this technique after doing this, there was still some necrosis and foreign material and necrosis of bilateral gluteal jose manuel muscles and these were debrided sharply with electrocautery as well as scalpel technique and we tried to take through the muscle and broke any granulomas. We then obtained hemostasis with electrocautery. With pulsatile lavage, irrigated 2 L of antibiotic irrigation and ensured hemostasis. After doing this the paraspinal muscle and fascia was not violated and there was extremely nice dissection and now the mass was removed relieving the pressure on the spine, on the spinal cord, as well as sciatic nerves. After ensuring hemostasis, 2 wound VACs were placed and the wound was partially closed with facundo and *------* 125 mmHg. The patient was flipped over, extubated, and transferred to recovery room in stable condition. Alfonzo Taylor MD
[2017-04-02] MEDS ORDERED: HYDROmorphone 0.5 mg/0.5 ml ISec IVP PRN (09:31)
--- NOTE | 2017-04-02 13:29 | CP.PCM.PN ---
Subjective - Date & Time of Evaluation Date of Evaluation: 04/02/17 Time of Evaluation: 08:50 - Subjective Subjective: Patient alert and awake. pain controlled with pain medications Afebrile, but still tachy Denies CP, SOB, N/V, abdominal pain patient seen and examined with attending Objective - Vital Signs/Intake and Output Vital Signs (last 24 hours): Temp Pulse Resp BP Pulse Ox 98.8 F 105 H 20 96/59 L 100 04/02/17 08:03 04/02/17 08:03 04/02/17 08:03 04/02/17 08:03 04/02/17 08:03 - Medications Medications: Current Medications Docusate Sodium (Colace) 200 mg PO DAILY [facility] Last Admin: 04/02/17 09:41 Dose: Not Given Ferrous Sulfate (Feosol) 325 mg PO DAILY [facility] Last Admin: 04/02/17 09:41 Dose: Not Given Heparin Sodium (Porcine) (Heparin) 5,000 units SC Q8 [facility] PRN Reason: Protocol Last Admin: 04/01/17 09:12 Dose: Not Given Hydromorphone HCl (Dilaudid) 0.5 mg IVP Q4 PRN PRN Reason: Pain, severe (8-10) Ampicillin Sodium/Sulbactam (Sodium 3 gm/ Sodium Chloride) 100 mls @ 100 mls/ hr IVPB Q8H [facility] Last Admin: 04/02/17 12:53 Dose: 100 mls/hr Lactated Ringer's (Lactated Ringer's) 1,000 mls @ 125 mls/hr IV .Q8H [facility] Last Admin: 04/02/17 04:43 Dose: 125 mls/hr Lactated Ringer's (Lactated Ringer's) 1,000 mls @ 999 mls/hr IV .Q1H1M [facility] Last Admin: 04/02/17 09:52 Dose: 999 mls/hr Morphine Sulfate (Morphine) 4 mg IVP Q6 PRN PRN Reason: Pain, severe (8-10) Last Admin: 04/02/17 06:49 Dose: 4 mg Ondansetron HCl (Zofran Inj) 4 mg IVP Q6 PRN PRN Reason: Nausea/Vomiting Last Admin: 04/02/17 06:55 Dose: 4 mg Oxycodone/Acetaminophen (Percocet 5/325 Mg Tab) 2 tab PO Q4 PRN PRN Reason: Pain, moderate (4-7) Stop: 04/04/17 18:36 Last Admin: 04/01/17 21:05 Dose: 2 tab Pantoprazole Sodium (Protonix Inj) 40 mg IVP DAILY [facility] Last Admin: 04/02/17 10:06 Dose: 40 mg - Labs Labs: 04/02/17 04:45 04/01/17 06:00 - Additional Findings Additional findings: Constitutional Appears: No Acute Distress - ENT Exam ENT Exam: Mucous Membranes Moist - Respiratory Exam Respiratory Exam: Clear to Ausculation Bilateral, NORMAL BREATHING PATTERN - Cardiovascular Exam Cardiovascular Exam: Tachycardia, REGULAR RHYTHM, +S1, +S2 - GI/Abdominal Exam GI & Abdominal Exam: Soft, Normal Bowel Sounds. absent: Guarding, Rigid, Tenderness - Neurological Exam Neurological Exam: Alert, Awake, Oriented x3 - Psychiatric Exam Psychiatric exam: Normal Affect - Skin Skin Exam: Dry, Intact, Pallor Assessment and Plan - Assessment and Plan (Free Text) Assessment: 36 y/o F with no significant PMHx s/p foreign body removal and necrotic tissue debridement and wound vac placement on POD 2 Plan: POD 3 s/p foreign body removal and necrotic tissue debridement and wound vac placement c/w with current management CBC showed no leukocytosis c/w pain control c/w Abx treatment pending OR for flap closure NPO for OR IV fluids Hold heparin f/u surgery recommendations Anemia most likely secondary to blood loss from potsurgical drainage H/H today trending down,8.3/24.2 , previously WNL type and cross consider transfusion start Iron supplementation daily start colace 200 mg daily f/u CBC Prophylaxis Held for now Heparin SC c/w Protonix for GI prophylaxis
[2017-04-02] MEDS ORDERED: Succinylcholine 200 mg/10 ml Inj IV ONE (14:44)
[2017-04-02] MEDS ORDERED: Propofol 10 mg/ml Inj (20 ML) ONE (14:44)
[2017-04-02] MEDS ORDERED: Midazolam 2 MG/2 ML VIAL ONE (15:11)
[2017-04-02] MEDS ORDERED: Desflurane Inhalation Anesthetic Liq (240 ml) ONE (15:13)
[2017-04-02] MEDS ORDERED: Lactated Ringer's 1,000 ML IV ONE ×2 (15:15→18:42)
[2017-04-02] MEDS ORDERED: Rocuronium 10 mg/ml (5 ml) ONE (15:30)
[2017-04-02] MEDS ORDERED: Sodium Chloride 0.9% 1,000 ML IV ONE (17:30)
[2017-04-02] MEDS ORDERED: Neostigmine Methylsulfate 3mg/3ml Syringe IV ONE (17:54)
[2017-04-02] MEDS ORDERED: Lidocaine 4% MPF 5 ML IJ ONE (18:37)
--- NOTE | 2017-04-02 18:46 | PCM.SURG1 ---
Surgeon's Initial Post Op Note - Surgeon's Notes Surgeon: Dr. Taylor Brewery Worker: Sweta PGY1, Walter Hopper PGY2, Fabi PGY3 Type of Anesthesia: General Endo Pre-Operative Diagnosis: Foreign body, fat necrosis, fibrosis Operative Findings: Same Post-Operative Diagnosis: Same Operation Performed: Delayed flat closure, necrotic tissue and foreign body debridement. drain placement Specimen/Specimens Removed: necrotic fat, soft tissue. Foreign body Estimated Blood Loss: EBL {In ML}: 200 Blood Products Given: PRBC Drains Used: Brendan Post-Op Condition: Good Date of Surgery/Procedure: 04/02/17 Time of Surgery/Procedure: 18:49
[2017-04-02] MEDS: HYDROmorphone 0.5 mg/0.5 ml ISec IVP PRN ×3 (19:00→19:30)
[2017-04-03] MEDS: Lactated Ringer's 1,000 ML IV SCH ×4 (00:12→23:45)
[2017-04-03] MEDS: Ampicillin/Sulbactam 3 GM in Sodium Chloride 0.9% 100 ML IVPB SCH ×3 (03:50→20:14)
[2017-04-03 06:51] LABS: ALB/GLOB RATIO 1.1 (1.0-2.1); ALBUMIN 2.2 g/dL (3.5-5.0); ALT/SGPT 32 U/L (9-52); AST/SGOT 39 U/L (14-36); BASO % 0.2 % (0.0-2.0); BLOOD UREA NITROGEN 6 mg/dl (7-17); CALCIUM 7.4 mg/dL (8.4-10.2); EOS # 0.3 K/uL (0.0-0.7); EOS % 3.2 % (0.0-4.0); GFR AFRICAN-AMERICAN > 60; GFR NON-AFRICAN AMERICAN > 60; LYMPH # 1.7 K/uL (1.0-4.3); LYMPH % 21.4 % (20.0-40.0); MEAN CELL VOLUME 84.7 fl (81.0-99.0); MEAN CORPUSCULAR HEMOGLOBIN 29.6 pg (27.0-31.0); MONO # 0.6 K/uL (0.0-0.8); MONO % 7.5 % (0.0-10.0); NEUT # 5.4 K/uL (1.8-7.0); NEUT % 67.7 % (50.0-75.0); NRBC % 0.1 % (0.0-0.0); RBC 3.06 Mil/uL (3.80-5.20); RED CELL DISTRIBUTION WIDTH 14.9 % (11.5-14.5)
--- NOTE | 2017-04-03 07:19 | CP.PCM.PN ---
Subjective - Date & Time of Evaluation Date of Evaluation: 04/03/17 Time of Evaluation: 07:16 - Subjective Subjective: Surgery for Dr. Taylor Pt s&e. Pt underwent advanced flap and wound debridement yesterday. Tolerated it well. Pain controlled. Denies F/C/N/V/D/CP/SOB. + void Objective - Vital Signs/Intake and Output Vital Signs (last 24 hours): Temp Pulse Resp BP Pulse Ox 99.3 F 91 H 16 98/63 L 100 04/03/17 04:39 04/03/17 04:39 04/03/17 04:39 04/03/17 04:39 04/03/17 04:39 Intake and Output: 04/03/17 04/03/17 06:59 18:59 Intake Total 1050 Output Total 325 Balance 725 - Medications Medications: Current Medications Docusate Sodium (Colace) 200 mg PO DAILY [facility] Last Admin: 04/02/17 09:41 Dose: Not Given Ferrous Sulfate (Feosol) 325 mg PO DAILY [facility] Last Admin: 04/02/17 09:41 Dose: Not Given Heparin Sodium (Porcine) (Heparin) 5,000 units SC Q8 [facility] PRN Reason: Protocol Last Admin: 04/01/17 09:12 Dose: Not Given Hydromorphone HCl (Dilaudid) 0.5 mg IVP Q15M PRN PRN Reason: Pain, moderate (4-7) Last Admin: 04/02/17 19:30 Dose: 0.5 mg Hydromorphone HCl (Dilaudid 0.2 Mg/Ml [employer]ing Management Consulting Manager) 0 mg IV PRN PRN; Protocol PRN Reason: Pain, moderate (4-7) Last Admin: 04/02/17 20:10 Dose: 0.2 mg Ampicillin Sodium/Sulbactam (Sodium 3 gm/ Sodium Chloride) 100 mls @ 100 mls/ hr IVPB Q8H [facility] Last Admin: 04/03/17 03:50 Dose: 100 mls/hr Lactated Ringer's (Lactated Ringer's) 1,000 mls @ 999 mls/hr IV .Q1H1M [facility] Last Admin: 04/02/17 09:52 Dose: 999 mls/hr Lactated Ringer's (Lactated Ringer's) 1,000 mls @ 100 mls/hr IV .Q10H [facility] Last Admin: 04/03/17 00:12 Dose: 100 mls/hr Morphine Sulfate (Morphine) 4 mg IVP Q6 PRN PRN Reason: Pain, severe (8-10) Last Admin: 04/02/17 06:49 Dose: 4 mg Ondansetron HCl (Zofran Inj) 4 mg IVP Q6 PRN PRN Reason: Nausea/Vomiting Last Admin: 04/02/17 06:55 Dose: 4 mg Pantoprazole Sodium (Protonix Inj) 40 mg IVP DAILY [facility] Last Admin: 04/02/17 10:06 Dose: 40 mg - Labs Labs: 04/03/17 06:30 04/03/17 06:30 - Constitutional Appears: No Acute Distress - Head Exam Head Exam: ATRAUMATIC, NORMAL INSPECTION, NORMOCEPHALIC - Eye Exam Eye Exam: EOMI, Normal appearance, PERRL Pupil Exam: NORMAL ACCOMODATION, PERRL - ENT Exam ENT Exam: Mucous Membranes Moist, Normal Exam - Neck Exam Neck Exam: Full ROM, Normal Inspection. absent: Lymphadenopathy - Respiratory Exam Respiratory Exam: Clear to Ausculation Bilateral, NORMAL BREATHING PATTERN - Cardiovascular Exam Cardiovascular Exam: REGULAR RHYTHM, +S1, +S2. absent: Murmur - GI/Abdominal Exam GI & Abdominal Exam: Soft, Normal Bowel Sounds. absent: Distended, Firm, Guarding, Rigid, Tenderness - Rectal Exam Rectal Exam: NORMAL INSPECTION - Exam Exam: NORMAL INSPECTION - Extremities Exam Extremities Exam: Full ROM, Normal Capillary Refill, Tenderness. absent: Joint Swelling, Pedal Edema Additional comments: Wound vac in place. no leak. Drains x3. low back has 40cm incision covered in wound vac. - Neurological Exam Neurological Exam: Alert, Awake, CN II-XII Intact, Oriented x3 - Skin Skin Exam: Dry, Intact, Normal Color, Warm Assessment and Plan - Assessment and Plan (Free Text) Assessment: 36F w. back pain 2/2 silicone buttock injections, s/p advancement flap, Debridement bilateral buttocks and back of necrotic tissue w. wound VAC placement and drains x3, POD#1 hgb 9 -continue w. pain meds -encourage OOB to chair TID -Do not sit directly on affected area for more than 4 hours -encourage IS use -resume heparin -will d/w attending
[2017-04-03 08:10] VITALS: RESP 18
[2017-04-03 10:43] VITALS: BMI 22.2
[2017-04-03] MEDS ORDERED: Oxycodone/Acetaminophen 5/325 mg Tab PO PRN (12:30)
--- NOTE | 2017-04-03 13:25 | CP.PCM.PN ---
Subjective - Date & Time of Evaluation Date of Evaluation: 04/03/17 Time of Evaluation: 09:30 - Subjective Subjective: patient seen and examined with attending patient is alert and oriented pain controlled with medications Denies chest pain, SOB, pain, N/V or other complains at this evaluation Pt underwent advanced flap and wound debridement yesterday Objective - Vital Signs/Intake and Output Vital Signs (last 24 hours): Temp Pulse Resp BP Pulse Ox 99.1 F 95 H 18 96/57 L 100 04/03/17 08:10 04/03/17 08:10 04/03/17 08:10 04/03/17 08:10 04/03/17 08:10 Intake and Output: 04/03/17 04/03/17 06:59 18:59 Intake Total 1050 Output Total 325 Balance 725 - Medications Medications: Current Medications Docusate Sodium (Colace) 200 mg PO DAILY [facility] Last Admin: 04/03/17 08:32 Dose: 200 mg Ferrous Sulfate (Feosol) 325 mg PO DAILY [facility] Last Admin: 04/03/17 08:32 Dose: 325 mg Heparin Sodium (Porcine) (Heparin) 5,000 units SC Q8 [facility] PRN Reason: Protocol Last Admin: 04/01/17 09:12 Dose: Not Given Hydromorphone HCl (Dilaudid) 0.5 mg IVP Q15M PRN PRN Reason: Pain, moderate (4-7) Last Admin: 04/02/17 19:30 Dose: 0.5 mg Hydromorphone HCl (Dilaudid 0.2 Mg/Ml Clinical Informaticist) 0 mg IV PRN PRN; Protocol PRN Reason: Pain, moderate (4-7) Last Admin: 04/02/17 20:10 Dose: 0.2 mg Ampicillin Sodium/Sulbactam (Sodium 3 gm/ Sodium Chloride) 100 mls @ 100 mls/ hr IVPB Q8H [facility] Last Admin: 04/03/17 11:36 Dose: 100 mls/hr Lactated Ringer's (Lactated Ringer's) 1,000 mls @ 999 mls/hr IV .Q1H1M [facility] Last Admin: 04/02/17 09:52 Dose: 999 mls/hr Morphine Sulfate (Morphine) 4 mg IVP Q6 PRN PRN Reason: Pain, severe (8-10) Last Admin: 04/02/17 06:49 Dose: 4 mg Ondansetron HCl (Zofran Inj) 4 mg IVP Q6 PRN PRN Reason: Nausea/Vomiting Last Admin: 04/02/17 06:55 Dose: 4 mg Oxycodone/Acetaminophen (Percocet 5/325 Mg Tab) 1 tab PO Q4 PRN PRN Reason: Pain, Mild (1-3) Stop: 04/06/17 12:31 Oxycodone/Acetaminophen (Percocet 5/325 Mg Tab) 2 tab PO Q4 PRN PRN Reason: Pain, moderate (4-7) Stop: 04/06/17 12:31 Pantoprazole Sodium (Protonix Inj) 40 mg IVP DAILY [facility] Last Admin: 04/03/17 08:32 Dose: 40 mg - Labs Labs: 04/03/17 06:30 04/03/17 06:30 - Additional Findings Additional findings: Constitutional Appears: No Acute Distress - ENT Exam ENT Exam: Mucous Membranes Moist - Respiratory Exam Respiratory Exam: Clear to Ausculation Bilateral, NORMAL BREATHING PATTERN - Cardiovascular Exam Cardiovascular Exam: Tachycardia, REGULAR RHYTHM, +S1, +S2 - GI/Abdominal Exam GI & Abdominal Exam: Soft, Normal Bowel Sounds. absent: Guarding, Rigid, Tenderness - Neurological Exam Neurological Exam: Alert, Awake, Oriented x3 - Psychiatric Exam Psychiatric exam: Normal Affect - Skin Skin Exam: Dry, Intact, Pallor Assessment and Plan - Assessment and Plan (Free Text) Assessment: 36 y/o F with no significant PMHx s/p foreign body removal and necrotic tissue debridement and wound vac placement on POD4 Plan: S/p second advancement flap, Debridement bilateral buttocks and back of necrotic tissue w. wound VAC placement and drains x3, POD#1 c/w with current management CBC showed no leukocytosis c/w pain control c/w Abx treatment c/w incentive spirometer regular diet f/u surgery recommendations Anemia most likely secondary to blood loss from potsurgical drainage H/H today 9.0/25.9 s/p transfusion start Iron supplementation daily start colace 200 mg daily f/u CBC Prophylaxis consider Re-assume Heparin SC . c/w SCDs c/w Protonix for GI prophylaxis
[2017-04-03] MEDS: Oxycodone/Acetaminophen 5/325 mg Tab PO PRN ×2 (14:39→18:32)
[2017-04-04] MEDS: Oxycodone/Acetaminophen 5/325 mg Tab PO PRN ×3 (00:07→11:07)
[2017-04-04 00:32] VITALS: O2SAT 100
[2017-04-04] MEDS: Ampicillin/Sulbactam 3 GM in Sodium Chloride 0.9% 100 ML IVPB SCH ×2 (04:35→11:08)
[2017-04-04 07:34] VITALS: BP 104/66; PULSE 110; TEMP 99.2
[2017-04-04 07:38] LABS: HEMOGLOBIN 8.3 g/dL (12.0-16.0); MEAN CELL VOLUME 85.8 fl (81.0-99.0); MEAN CORPUSCULAR HEMOGLOBIN 29.8 pg (27.0-31.0); MEAN CORPUSCULAR HGB CONC 34.7 g/dL (33.0-37.0); RBC 2.8 Mil/uL (3.80-5.20); RED CELL DISTRIBUTION WIDTH 14.6 % (11.5-14.5); WHITE BLOOD COUNT 8.6 K/uL (4.8-10.8)
--- NOTE | 2017-04-04 10:45 | CP.PCM.PN ---
Subjective - Date & Time of Evaluation Date of Evaluation: 04/04/17 Time of Evaluation: 07:00 - Subjective Subjective: PLASTIC SURGERY PROGRESS NOTE FOR DR. WATERMAN Patient seen and examined at bedside. She is doing well and tolerating regular diet. Denies nausea or vomiting. Wound vac in place on 125mmHg with no leak. [address], patient did not allow me to strip the drains and stated that she does it herself. Objective - Vital Signs/Intake and Output Vital Signs (last 24 hours): Temp Pulse Resp BP Pulse Ox 99.2 F 110 H 18 104/66 100 04/04/17 07:33 04/04/17 07:33 04/04/17 07:33 04/04/17 07:33 04/04/17 07:33 Intake and Output: 04/04/17 04/04/17 06:59 18:59 Intake Total 100 Output Total 350 Balance -250 - Medications Medications: Current Medications Docusate Sodium (Colace) 200 mg PO DAILY [facility] Last Admin: 04/04/17 09:35 Dose: 200 mg Ferrous Sulfate (Feosol) 325 mg PO TID [facility] Heparin Sodium (Porcine) (Heparin) 5,000 units SC Q8 VIKRAM PRN Reason: Protocol Last Admin: 04/04/17 09:37 Dose: 5,000 units Hydromorphone HCl (Dilaudid) 0.5 mg IVP Q15M PRN PRN Reason: Pain, moderate (4-7) Last Admin: 04/02/17 19:30 Dose: 0.5 mg Ampicillin Sodium/Sulbactam (Sodium 3 gm/ Sodium Chloride) 100 mls @ 100 mls/ hr IVPB Q8H [facility] Last Admin: 04/04/17 04:35 Dose: 100 mls/hr Lactated Ringer's (Lactated Ringer's) 1,000 mls @ 999 mls/hr IV .Q1H1M [facility] Last Admin: 04/03/17 23:45 Dose: Not Given Morphine Sulfate (Morphine) 4 mg IVP Q6 PRN PRN Reason: Pain, severe (8-10) Last Admin: 04/02/17 06:49 Dose: 4 mg Ondansetron HCl (Zofran Inj) 4 mg IVP Q6 PRN PRN Reason: Nausea/Vomiting Last Admin: 04/02/17 06:55 Dose: 4 mg Oxycodone/Acetaminophen (Percocet 5/325 Mg Tab) 1 tab PO Q4 PRN PRN Reason: Pain, Mild (1-3) Stop: 04/06/17 12:31 Oxycodone/Acetaminophen (Percocet 5/325 Mg Tab) 2 tab PO Q4 PRN PRN Reason: Pain, moderate (4-7) Stop: 04/06/17 12:31 Last Admin: 04/04/17 06:34 Dose: 2 tab Pantoprazole Sodium (Protonix Inj) 40 mg IVP DAILY [facility] Last Admin: 04/03/17 08:32 Dose: 40 mg - Labs Labs: 04/04/17 05:30 04/03/17 06:30 - Constitutional Appears: Non-toxic, No Acute Distress - Head Exam Head Exam: ATRAUMATIC, NORMAL INSPECTION - Respiratory Exam Respiratory Exam: NORMAL BREATHING PATTERN. absent: Respiratory Distress - Cardiovascular Exam Cardiovascular Exam: +S1, +S2 - GI/Abdominal Exam GI & Abdominal Exam: Soft. absent: Tenderness - Neurological Exam Neurological Exam: Alert, Awake, Oriented x3 - Psychiatric Exam Psychiatric exam: Normal Affect - Skin Skin Exam: Dry, Warm Additional comments: Wound vac in place over 40cm incision on lower back. No leaks. [address] with serosanguinous drainage over past 24 hours. Assessment and Plan - Assessment and Plan (Free Text) Assessment: 36yo F w/ back pain 2/2 silicone buttock injections, s/p advancement flap, Debridement bilateral buttocks and back of necrotic tissue w. wound VAC placement and drains x3, POD#2 - Clear for DC home from surgical standpoint - She will go home with the wound vac and [address] (drains are to stay in for about 1 month) - No shower or baths - Will call in prescription for Percocet and Cipro 500 BID x2 weeks - She should follow up with Dr. Waterman in his office on Thursday - Discussed plan with Dr. Brandon Stinson PGY-3
--- NOTE | 2017-04-06 22:36 | OP ---
PROCEDURE DATE: 04/02/2017 PREOPERATIVE DIAGNOSES: 1. Open bilateral buttock wound status post radical debridement and resection of necrotic soft tissue. 2. Bilateral buttock, back and hip soft tissue necrosis secondary to foreign bodies. 3. Chronic cellulitis of the bilateral buttocks. POSTOPERATIVE DIAGNOSES: 1. Open bilateral buttock wounds status post radical debridement and resection of necrotic soft tissue. 2. Bilateral buttock, back and hip soft tissue necrosis secondary to foreign bodies. 3. Chronic cellulitis of the bilateral buttocks. PROCEDURES PERFORMED: As follows; 1. Stage partial removal of foreign bodies from lumbar back and bilateral buttocks and hips. 2. Radical resection of 144 cm2 of left hip and buttock necrotic soft tissue mass. 3. Radical resection of the 225 cm2 of necrotic right buttock and hip necrotic soft tissue mass. 4. Lumbar spine fasciocutaneous advancement flap. 5. Right gluteal fasciocutaneous advancement flap. 6. Left gluteal fasciocutaneous advancement flap. 7. Complex closure of 37 cm open back wound. 8. Partial lavage irrigation of bilateral back and buttocks open wounds. 9. Prevena incisional VAC placement. SURGEON: Alfonzo Taylor MD. CROP SCOUT: Checo Caro MD. TYPE OF ANESTHESIA: General endotracheal tube anesthesia. ANESTHESIA ADMINISTERED BY: Ray Edward MD. INDICATIONS FOR PROCEDURE: This is a 36-year-old female who I had previously operated on a few days prior. In the interim, the patient has been treated with a wound VAC therapy on the floor as well as IV antibiotics. Her vitals remain stable today. The plan was to take the patient back for planned second stage to look for further debridement of necrotic soft tissue from bilateral buttocks, hips and back as well as removal of foreign body and fasciocutaneous advancement flap closure over drains. Risks and benefits of the operation were fully discussed with the patient and the previous operation reiterated in the holding area today. The patient agreed to proceed and signed informed consent and all questions were answered. FINDINGS: As above. ESTIMATED BLOOD LOSS: 300 mL. BLOOD PRODUCTS: The patient had 2 units of packed red blood cells. DRAINS: 19-Omani Brendan x3 and VAC in buttocks. COMPLICATIONS: None. CONDITION: Stable. SPECIMENS: 1. Buttock and back skin. 2. Left buttock and hip necrotic soft tissue. 3. Right buttock and hip necrotic soft tissue. DESCRIPTION OF PROCEDURE: The patient was taken to the operating room in the supine position, placed under general endotracheal tube anesthesia. Perioperative antibiotics were confirmed. SCDs were placed on bilateral lower extremities. She was flipped into prone position. After appropriate positioning and padding of her arms and the rest of the body, we removed the wound VAC that was placed prior. We prepped and draped the entire area in the usual clean and sterile manner. We used the blue towel and Ioban dressing over the anus to block any bowel flow. We started the operation by exploring for any bleeding. There was nothing significant. We then used the Nabeel clamps and we measured proposed skin excision from bilateral buttocks and back flaps. We marked it proposed line of incision, excision out from the back as well. We used a #10 scalpel. We cut out the skin and excised significant amount of buttock skin and soft tissue with scalpel and electrocautery and then with the aid of a lighted retractor and to further elevate our flaps inferiorly on bilateral buttocks, we did this down another 10 cm. We then elevated plane of dissection just above the gluteus jose manuel muscles. We then debrided more foreign body and necrotic soft tissues from bilateral buttocks and hips. There was 144 cm2 of left hip and buttock necrotic soft tissue mass and 225 cm2 of right buttock and hip necrotic soft tissue mass that was excised with a combination of sharp dissection as well as electrocautery. We made sure that hemostasis was obtained with electrocautery. After doing this, we were pleased with the capillary refill to the skin flaps and we took out as much foreign body as possible. We then incised the deep fascia over the 3 flaps and advanced bilateral gluteal flaps superiorly and in terms of the lumbar flap which was previously elevated, we elevated it some more, cut out some skin and then incised the deep fascia and did an advancement flap. We irrigated with 2 liters of antibiotic irrigation, ensured hemostasis. We tailor-tacked the skin with [place]e clamps. We then used 0 Vicryl sutures and advancement progressive tension suture technique to perform closure of the space and advancement of the flap closure for the 3 flaps. Prior to doing this, we placed three, 19-Omani Brendan drains, one in each buttock and one under the back, taken out through the anterolateral hip through separate stab incisions, secured the drains with 2-0 silk sutures. We then had the 37 cm long incision, aligned and approximated the Marshall's fascia in interrupted fashion with 0 Vicryl sutures, aligned and approximated the deep dermis in interrupted fashion with 2-0 Vicryl suture, closed the epidermis with the running 3-0 Monocryl suture. We then placed the Prevena incisional VAC, set it to the hospital VAC at 125 mmHg, flipped the patient over, extubated and transferred to recovery room in stable condition. Alfonzo Taylor MD
== END 2017-04-04 14:30 | disposition home or self-care (01) | DRG 572 ==
LOC: H.ER 19:08 → H.ERHOLD 23:05 → H.MEDSURG1 03-30 00:55
PROVIDERS: ADMIT Family Medicine; ATTEND Family Medicine
PROC: 0JB90ZZ Excision of Buttock Subcutaneous Tissue and Fascia, Open Approach (ICD-10-PCS; principal; 2017-04-02 15:00)
DX: L03.312 Cellulitis of back [any part except buttock and flank] (principal); G89.29 Other chronic pain; L92.3 Foreign body granuloma of the skin and subcutaneous tissue